=== PATIENT | female | born 1990 | race Caucasian/White ===

== ENCOUNTER 2017-10-05 19:50 | Emergency (ER) | payer MEDICAID ==
[~2017-10-05] VITALS: Ht 157.5 cm; Wt 60.8 kg
[2017-10-05] MEDS ORDERED: DIAZEPAM 5 MG TABLET ONE (20:36)
[2017-10-05] MEDS ORDERED: KETOROLAC 30 MG/1 ML ONE (20:36)
[2017-10-05] MEDS ORDERED: DIAZEPAM 5 MG TABLET PO ONE (21:00)
[2017-10-05] MEDS ORDERED: KETOROLAC 30 MG/1 ML IM ONE (21:00)
[2017-10-05 21:56] VITALS: BP 104/78
== END 2017-10-05 21:59 | disposition home or self-care (01) ==
LOC: ED 20:52
DX: G44.219 Episodic tension-type headache, not intractable (principal); Z88.2 Allergy status to sulfonamides; Z88.5 Allergy status to narcotic agent; Z88.8 Allergy status to other drugs, medicaments and biological substances
CPT/HCPCS: 96372; 99283; J1885

== ENCOUNTER 2018-11-28 19:38 | Emergency (ER) | payer MEDICAID, OTHER ==
[~2018-11-28] VITALS: Ht 157.5 cm; Wt 58.8 kg
--- NOTE | 2018-11-28 20:10 | NUR ---
PT RESTING ON GURNEY, PRESENTED WITH C/O H/A AND LOWER EXT TINGLING THAT STARTED LAST NIGHT. MONITORS APPLIED, SIDERAILS UP X2, CALL LIGHT WITHIN REACH. AWAITING ERP FOR EVAL AND ORDERS
[2018-11-28] MEDS ORDERED: BACL-19 PO (20:15)
[2018-11-28] MEDS ORDERED: VENL75TA PO (20:15)
[2018-11-28] MEDS ORDERED: PROM25SU34 RC (20:15)
[2018-11-28] MEDS ORDERED: IBUP-1222 PO (20:15)
[2018-11-28] MEDS ORDERED: SUMATRIPTAN 25 MG TABLET ONE (20:18)
[2018-11-28] MEDS ORDERED: SUMATRIPTAN 50 MG TABLET PO PRN (20:30)
--- NOTE | 2018-11-28 21:01 | NUR ---
PT RESTING CALMLY, STATED H/A IS GONE, CALL LIGHT WITHIN REACH. CHART UP FOR RECHECK
[2018-11-28 21:42] VITALS: BP 90/56
== END 2018-11-28 21:43 | disposition home or self-care (01) ==
LOC: ED 20:00
DX: G43.009 Migraine without aura, not intractable, without status migrainosus (principal); Z88.5 Allergy status to narcotic agent; Z88.2 Allergy status to sulfonamides
CPT/HCPCS: 99283

== ENCOUNTER 2019-08-06 10:49 | Emergency (ER) | payer MEDICAID ==
[~2019-08-06] VITALS: Ht 157.5 cm; Wt 61.0 kg
[~2019-08-06 10:49] MED LIST: BACL-19 PO; IBUP-1222 PO; PROM25SU34 RC; VENL75TA PO
[2019-08-06 12:25] LABS: BASOPHILS # (AUTO) 0.12 x10^3/uL (0-0.1); BASOPHILS % (AUTO) 2 % (0-1); EOSINOPHILS # (AUTO) 0.18 x10^3/uL (0-0.4); EOSINOPHILS % (AUTO) 3 % (1-7); LYMPHOCYTES # (AUTO) 2.14 x10^3/uL (1-3.4); LYMPHOCYTES % (AUTO) 32 % (22-44); MD NO; MEAN CORPUSCULAR HEMOGLOBIN 29.6 pg (27.0-34.8); MEAN CORPUSCULAR HGB CONC 33.4 g/dL (32.4-35.8); MEAN CORPUSCULAR VOLUME 88.6 fL (80-100); MEAN PLATELET VOLUME 9.5 fL (7.4-10.4); MONOCYTES # (AUTO) 0.44 x10^3/uL (0.2-0.8); MONOCYTES % (AUTO) 7 % (2-9); NEUTROPHILS # (AUTO) 3.86 x10^3/uL (1.8-6.8); NEUTROPHILS % (AUTO) 57 % (42-75); PLATELET COUNT 264 x10^3/uL (130-400); RED BLOOD COUNT 5.65 x10^6/uL (3.82-5.3); RED CELL DISTRIBUTION WIDTH 14.1 % (9.6-15.2)
[2019-08-06 12:36] LABS: ALBUMIN 4.4 g/dL (3.4-5.0); ANION GAP 10 mmol/L (5-15); CALCIUM 9.5 mg/dL (8.5-10.1); CHLORIDE 109 mmol/L (98-107)
--- NOTE | 2019-08-06 12:53 | NUR ---
THERMO PROCESSOR: PT TO ROOM FROM LOBBY
[2019-08-06 13:01] VITALS: BP 117/67
--- NOTE | 2019-08-06 13:01 | NUR ---
PT BIB BY A FRIEND. FEELS IF SHE MAY HAVE AN PANIC ATTACK. REFINERY TECHNICIAN DISCONTINUED HER MEDS WHICH WAS XANAX 3MG/DAY. REFINERY TECHNICIAN TOLD HER SHE WAS JUST A ADDICT LOOKING FOR DRUGS
== END 2019-08-06 14:03 | disposition home or self-care (01) ==
LOC: ED 13:50
DX: F41.1 Generalized anxiety disorder (principal); R07.89 Other chest pain
CPT/HCPCS: 36415; 71045; 80048; 82040; 84703; 85025; 93005; 99284

== ENCOUNTER 2019-08-14 21:14 | Emergency (ER) | payer MEDICAID ==
[~2019-08-14] VITALS: Ht 157.5 cm; Wt 61.7 kg
[2019-08-14 22:12] LABS: BASOPHILS # (AUTO) 0.07 x10^3/uL (0-0.1); BASOPHILS % (AUTO) 1 % (0-1); EOSINOPHILS % (AUTO) 2 % (1-7); LYMPHOCYTES % (AUTO) 31 % (22-44); MD NO; MEAN CORPUSCULAR HGB CONC 33.2 g/dL (32.4-35.8); MEAN CORPUSCULAR VOLUME 90.3 fL (80-100); MEAN PLATELET VOLUME 9.6 fL (7.4-10.4); MONOCYTES # (AUTO) 0.65 x10^3/uL (0.2-0.8); MONOCYTES % (AUTO) 7 % (2-9); NEUTROPHILS # (AUTO) 5.68 x10^3/uL (1.8-6.8); NEUTROPHILS % (AUTO) 60 % (42-75); PLATELET COUNT 297 x10^3/uL (130-400); RED BLOOD COUNT 5.37 x10^6/uL (3.82-5.3); RED CELL DISTRIBUTION WIDTH 15.1 % (9.6-15.2)
[2019-08-14 22:18] LABS: ALANINE AMINOTRANSFERASE 26 U/L (12-78); ALBUMIN 3.9 g/dL (3.4-5.0); ANION GAP 6 mmol/L (5-15); CALCIUM 8.9 mg/dL (8.5-10.1); CHLORIDE 110 mmol/L (98-107); CREATININE 1.16 mg/dL (0.55-1.02)
[2019-08-14 22:23] LABS: ALKALINE PHOSPHATASE 74 U/L (45-117); BILIRUBIN,TOTAL 0.8 mg/dL (0.2-1.0); TOTAL PROTEIN 7.2 g/dL (6.4-8.2)
--- NOTE | 2019-08-14 23:53 | NUR ---
First contact w/ pt. Pt presents to ed c/o epigastric pain since yesterday and blood in stool. "im not even going to the bathroom; its just blood." Pt denies any hypotensive s/s. Pt denies any recent trauma or hx of hemorrhoids.
[2019-08-15] MEDS ORDERED: MORPHINE SULFATE 4 MG/ML, 1ML ONE ×2 (00:03→01:18)
[2019-08-15] MEDS: MORPHINE SULFATE 4 MG/ML, 1ML IVPush PRN ×2 (00:10→01:22)
[2019-08-15 00:20] LABS: MICROSCOPIC NOT IND
[2019-08-15 00:30] LABS: CULTURE INDICATED? NO
[2019-08-15 01:30] VITALS: BP 108/50
--- NOTE | 2019-08-15 01:30 | NUR ---
Md aware of moderately low bp. Pt bp recheck, and bp improved.
--- NOTE | 2019-08-15 01:32 | NUR ---
at bedside for recheck.
[2019-08-15] MEDS ORDERED: OMNIPAQUE 350 MG/ML, 100ML BOTTLE ONE (03:57)
== END 2019-08-15 02:04 | disposition home or self-care (01) ==
LOC: ED 23:44
DX: K59.00 Constipation, unspecified (principal); K85.00 Idiopathic acute pancreatitis without necrosis or infection; G43.909 Migraine, unspecified, not intractable, without status migrainosus; R10.84 Generalized abdominal pain
CPT/HCPCS: 74177; 96374; 96376; 99284

== ENCOUNTER 2020-01-12 20:12 | Emergency (ER) | payer MEDICAID ==
[~2020-01-12] VITALS: Ht 157.5 cm; Wt 70.7 kg
--- NOTE | 2020-01-12 20:47 | NUR ---
CARE ASSUMED OF PT. PT SITTING WITH NO S/S OF ACUTE DISTRESS. STATES SHE WOULD LIKE A NOTE TO GO BACK TO WORK S/P BE. DENIES FURTHER NEEDS. PO FLUIDS GIVEN. CHART UP FOR EVAL. AWAITING ERP. CALL LIGHT IN REACH.
[2020-01-12 21:21] VITALS: BP 100/61
[2020-01-12] MEDS ORDERED: IBUPROFEN 600 MG TABLET PO ONE (21:30)
== END 2020-01-12 21:23 | disposition home or self-care (01) ==
LOC: ED 20:45
DX: G44.52 New daily persistent headache (NDPH) (principal); R11.10 Vomiting, unspecified
CPT/HCPCS: 99282

== ENCOUNTER 2020-10-12 11:59 | Emergency (ER) | payer MEDICAID ==
[~2020-10-12] VITALS: Ht 157.5 cm; Wt 70.0 kg
[2020-10-12 12:35] LABS: BASOPHILS % (AUTO) 1 % (0-1); EOSINOPHILS % (AUTO) 2 % (1-7); LYMPHOCYTES % (AUTO) 26 % (22-44); MEAN CORPUSCULAR HEMOGLOBIN 29.8 pg (27.0-34.8); MEAN CORPUSCULAR HGB CONC 34.6 g/dL (32.4-35.8); MEAN PLATELET VOLUME 9.4 fL (7.4-10.4); MONOCYTES % (AUTO) 6 % (2-9); NEUTROPHILS % (AUTO) 66 % (42-75); PLATELET COUNT 253 x10^3/uL (130-400); RED BLOOD COUNT 5.43 x10^6/uL (3.82-5.3); RED CELL DISTRIBUTION WIDTH 13.8 % (9.6-15.2)
[2020-10-12 12:36] LABS: MD NO
--- NOTE | 2020-10-12 12:40 | NUR ---
DECK ENGINEER: PT CURRENTLY IN US. US NOTIFIED TO ROOM PT IN ROOM 26 WHEN US STUDY IS COMPLETED.
[2020-10-12 12:43] LABS: ALBUMIN 4.3 g/dL (3.4-5.0); ANION GAP 8 mmol/L (5-15); CALCIUM 9.1 mg/dL (8.5-10.1); CHLORIDE 112 mmol/L (98-107)
[2020-10-12 12:49] LABS: ALANINE AMINOTRANSFERASE 19 U/L (12-78); ALKALINE PHOSPHATASE 73 U/L (45-117); BILIRUBIN,TOTAL 0.7 mg/dL (0.2-1.0); CREATININE 0.93 mg/dL (0.55-1.02); TOTAL PROTEIN 7.3 g/dL (6.4-8.2)
--- NOTE | 2020-10-12 13:00 | NUR ---
AWAITING PT FROM US PER CHARGE, RN.
[2020-10-12] MEDS ORDERED: SODIUM CHLORIDE FLUSH 10ML SYR IVF ONE (13:30)
--- NOTE | 2020-10-12 14:08 | NUR ---
PT IN RM FROM
[2020-10-12 14:14] VITALS: BP 133/72
--- NOTE | 2020-10-12 14:15 | NUR ---
UA COLLECTED. AWAITING ORD TO SEND TO LAB.
--- NOTE | 2020-10-12 14:49 | NUR ---
EDP AT BEDSIDE.
[2020-10-12 14:57] LABS: MICROSCOPIC NOT IND
[2020-10-12] MEDS ORDERED: MAALOX/HYOSCYAMINE/LIDOCAINE 45 ML BTL PO ONE (15:00)
[2020-10-12] MEDS ORDERED: MAALOX/HYOSCYAMINE/LIDOCAINE 45 ML BTL ONE (16:00)
== END 2020-10-12 16:53 | disposition home or self-care (01) ==
LOC: ED 14:24
DX: K29.00 Acute gastritis without bleeding (principal); R11.2 Nausea with vomiting, unspecified; R10.13 Epigastric pain; Z98.51 Tubal ligation status; Z90.89 Acquired absence of other organs
CPT/HCPCS: 36415; 76700; 80053; 81003; 83690; 84703; 85025; 99284

== ENCOUNTER 2021-04-03 11:01 | Emergency (ER) | payer MEDICAID ==
[~2021-04-03] VITALS: Ht 157.5 cm; Wt 63.0 kg
[2021-04-03 11:48] LABS: BASOPHILS % (AUTO) 1 % (0-1); EOSINOPHILS % (AUTO) 1 % (1-7); LYMPHOCYTES % (AUTO) 17 % (22-44); MEAN CORPUSCULAR HEMOGLOBIN 30.1 pg (27.0-34.8); MEAN CORPUSCULAR HGB CONC 34.9 g/dL (32.4-35.8); MEAN PLATELET VOLUME 9.5 fL (7.4-10.4); MONOCYTES % (AUTO) 18 % (2-9); NEUTROPHILS % (AUTO) 63 % (42-75); PLATELET COUNT 223 x10^3/uL (130-400); RED BLOOD COUNT 5.09 x10^6/uL (3.82-5.3)
[2021-04-03] MEDS ORDERED: IBUPROFEN 600 MG TABLET ONE (11:58)
[2021-04-03] MEDS ORDERED: ACETAMINOPHEN 325 MG TABLET ONE (11:58)
[2021-04-03] MEDS ORDERED: IBUPROFEN 800 MG TABLET PO ONE (12:00)
[2021-04-03] MEDS ORDERED: ACETAMINOPHEN 325 MG TABLET PO ONE (12:00)
[2021-04-03 12:02] LABS: ALBUMIN 3.9 g/dL (3.4-5.0); ANION GAP 5 mmol/L (5-15); CALCIUM 8.9 mg/dL (8.5-10.1); CHLORIDE 112 mmol/L (98-107)
[2021-04-03 12:03] LABS: CREATININE 0.82 mg/dL (0.55-1.02)
--- NOTE | 2021-04-03 12:13 | NUR ---
PT CAME IN CO BODY ACHES AND BE X3 DAYS. DID NOT GET COIVD VACCINE. RESTING IN [facility], MEDCIATED PER [facility]
[2021-04-03 12:39] LABS: MICROSCOPIC INDICATED
[2021-04-03 13:02] VITALS: BP 113/67
[2021-04-03] MEDS ORDERED: KETOROLAC 30 MG/1 ML ONE (13:22)
[2021-04-03] MEDS ORDERED: KETOROLAC 30 MG/1 ML IM ONE (13:30)
== END 2021-04-03 13:35 | disposition home or self-care (01) ==
LOC: ED 12:18
DX: M79.10 Myalgia, unspecified site (principal); G43.909 Migraine, unspecified, not intractable, without status migrainosus; B34.9 Viral infection, unspecified; Z20.822 Contact with and (suspected) exposure to COVID-19; J06.9 Acute upper respiratory infection, unspecified
CPT/HCPCS: 36415; 71045; 80048; 81001; 82040; 84703; 85025; 87081; 87086; 87880; 96372; 99284; J1885; U0003; U0005